=== PATIENT | female | born 1990 | race Caucasian/White ===

== ENCOUNTER 2023-12-21 00:38 | Emergency (ER) | payer OTHER | END 2023-12-21 02:15 | disposition home or self-care (01) | LOC: CSHERS 00:38 | DX: R00.2 Palpitations (principal); R07.89 Other chest pain; I25.2 Old myocardial infarction; F17.290 Nicotine dependence, other tobacco product, uncomplicated; Z79.899 Other long term (current) drug therapy | CPT/HCPCS: 71046; 93005 ==